=== PATIENT | female | born 1940 | race Caucasian/White ===

== ENCOUNTER 2021-06-14 21:50 | Observation (INO) | payer MEDICARE, BC ==
[2021-06-14] MEDS ORDERED: HYDROmorphone 1 MG/ML Syringe IM ONE (22:06)
--- NOTE | 2021-06-14 22:08 | EDM.PDOC ---
ED HPI GENERAL MEDICAL PROBLEM - General Chief Complaint: Lower Extremity Injury/Pain Stated Complaint: LT LEG ISSUES Time Seen by Provider: 06/14/21 22:00 Source of Information: Reports: Patient, Family History Limitations: Reports: No Limitations - History of Present Illness INITIAL COMMENTS - FREE TEXT/NARRATIVE: 80-year-old female who just underwent knee surgery in April on the left side, was walking around the back of the vehicle this evening when her leg gave out. She has severe pain in her left femur and around her left knee, she is unable to move the leg or bear any weight. No other injury. Onset: Sudden Location: Reports: Lower Extremity, Left Associated Symptoms: Reports: No Other Symptoms Left Leg Pain Score (Numeric/FACES): 6 - Related Data Allergies Allergy/AdvReac Type Severity Reaction Status Date / Time No Known Allergies Allergy Verified 04/11/14 09:43 Home Meds: Home Meds Acetaminophen [Pain Relief Extra Strength] 1,000 mg PO QID 06/14/21 [History] Aspirin 325 mg PO DAILY 06/14/21 [History] Glimepiride 2 mg PO DAILY 06/14/21 [History] Metoprolol Tartrate [Lopressor] 25 mg PO Q12HR 06/14/21 [History] Review of Systems - Review of Systems Review Of Systems: See Below Constitutional: Denies: Fever Respiratory: Denies: Shortness of Breath Cardiovascular: Denies: Chest Pain Musculoskeletal: Reports: Other (Severe left leg pain) Skin: Denies: Bruising ED EXAM, GENERAL - Physical Exam Exam: See Below Exam Limited By: No Limitations General Appearance: Alert, Anxious, Moderate Distress (Very uncomfortable) Eye Exam: Bilateral Eye: Normal Inspection Respiratory/Chest: No Respiratory Distress Cardiovascular: Regular Rate, Rhythm, Tachycardia GI/Abdominal: Soft, Non-Tender Extremities: Other (Diffuse swelling over the distal femur, lack of solid structure and crepitus indicates a distal fracture likely. Distal CMS is intact. Palpation around the left hip is nontender) Neurological: Alert, Oriented Psychiatric: Anxious Skin Exam: Warm, Dry Course - Vital Signs Last Recorded V/S: Last Vital Signs Temp 98.8 F 06/15/21 01:06 Pulse 99 06/15/21 01:06 Resp 18 06/15/21 01:06 BP 160/93 H 06/15/21 01:06 Pulse Ox 93 L 06/15/21 01:06 - Orders/Labs/Meds Orders: Medication Orders Hydromorphone HCl (Hydromorphone 0.5 Mg/0.5 Ml Syringe) 0.5 mg IVPUSH Q2H PRN PRN Reason: Pain Last Admin: 06/15/21 01:58 Dose: 0.5 mg Documented by: TRACE Sodium Chloride (Normal Saline) 1,000 mls @ 75 mls/hr IV ASDIRECTED MIKAYLA Last Admin: 06/15/21 01:59 Dose: 75 mls/hr Documented by: TRACE Metoprolol Tartrate (Metoprolol Tartrate 25 Mg Tab) 25 mg PO Q12H [facility] Labs: Laboratory Tests 06/15/21 06/15/21 06/15/21 Range/Units 00:25 00:25 00:37 WBC 9.9 (4.5-11.0) K/uL RBC 4.61 (3.30-5.50) M/uL Hgb 14.2 (12.0-15.0) g/dL Hct 44.3 (36.0-48.0) % MCV 96 (80-98) fL MCH 31 (27-31) pg MCHC 32 (32-36) % Plt Count 197 (150-400) K/uL Neut % (Auto) 82.3 H (36-66) % Lymph % (Auto) 11.9 L (24-44) % Wetzel % (Auto) 4.9 (2-6) % Eos % (Auto) 0.6 L (2-4) % Baso % (Auto) 0.3 (0-1) % Sodium 140 (140-148) mmol/L Potassium 4.6 (3.6-5.2) mmol/L Chloride 105 (100-108) mmol/L Carbon Dioxide 26 (21-32) mmol/L Anion Gap 9.4 (5.0-14.0) mmol/L BUN 15 (7-18) mg/dL Creatinine 0.8 (0.6-1.0) mg/dL Est Cr Clr Drug Dosing 49.24 mL/min Estimated GFR (MDRD) > 60 (>60) Glucose 192 H (74-106) mg/dL Calcium 9.4 (8.5-10.1) mg/dL SARS CoV-2 RNA Rapid LUCIO Negative Meds: Medications Generic Name Dose Route Start Last Admin Trade Name Freq PRN Reason Stop Dose Admin Hydromorphone HCl 0.5 mg 06/15/21 01:47 06/15/21 01:58 Hydromorphone 0.5 Mg/0.5 Ml Syringe IVPUSH 0.5 mg Q2H PRN Administration Pain Sodium Chloride 1,000 mls @ 75 mls/hr 06/15/21 02:00 06/15/21 01:59 Normal Saline IV 75 mls/hr ASDIRECTED MIKAYLA Administration Metoprolol Tartrate 25 mg 06/15/21 09:00 Metoprolol Tartrate 25 Mg Tab PO Q12H MIKAYLA Discontinued Medications Generic Name Dose Route Start Last Admin Trade Name Freq PRN Reason Stop Dose Admin Hydromorphone HCl 1 mg 06/14/21 22:06 06/14/21 22:16 Hydromorphone 1 Mg/Ml Syringe IM 06/14/21 22:07 1 mg ONETIME ONE Administration Metoprolol Tartrate 25 mg 06/15/21 02:00 Metoprolol Tartrate 25 Mg Tab PO Q12H MIKAYLA Propofol Confirm 06/15/21 00:00 Propofol 200 Mg/20 Ml Sdv Administered 06/15/21 00:01 Dose 200 mg .ROUTE .STK-MED ONE - Re-Assessments/Exams Free Text/Narrative Re-Assessment/Exam: 06/14/21 23:06 X-ray unfortunately confirms a spiral distal femur fracture above the total knee. There is displacement. Orthopedics at [facility] was consulted and they are reviewing the films, anesthesia was consulted and the patient will be placed under propofol sedation and we will try to reduce this fracture and get a knee immobilizer on her for transfer. 06/15/21 00:28 [facility], [facility], [facility] in [place] all declined transfer of the patient. We are unable to provide orthopedic surgery here as we do not have the correct materials according to Dr. Banda. [facility] was consulted. Our only option is to place her here for pain control and wait for a bed to open at [facility] tomorrow. Under propofol sedation the leg was straightened, reduction was attempted and a knee immobilizer was placed. She felt much better but still had significant displacement on the post reduction. Dr. Ortiz he agreed to admit the patient for pain control, a Covid screen was done as well as a BMP and CBC which are pending. She is doing much better. 06/15/21 00:42 [facility] expects discharge is to start occurring at 8 AM, they asked us to call at 8 AM at the change of shift with the physicians to arrange transfer. 06/15/21 02:44 Patient was under sedation 22 minutes Departure - Departure Time of Disposition: 00:53 Disposition: Admitted As Inpatient 66 Clinical Impression: Closed fracture of left distal femur Qualifiers: Encounter type: initial encounter Fracture morphology: unspecified fracture morphology Qualified Code(s): S72.402A - Unspecified fracture of lower end of left femur, initial encounter for closed fracture - Discharge Information Sepsis Event Note (ED) - Focused Exam Vital Signs: Vital Signs Temp Pulse Resp BP Pulse Ox 06/14/21 23:25 99 18 129/84 92 L 06/14/21 22:13 96.8 F L 110 H 16 141/93 H 96 06/14/21 22:05 96.8 F L 110 H 16 141/93 H 96
[2021-06-15] MEDS ORDERED: Propofol 200 MG/20 ML SDV ONE
--- NOTE | 2021-06-15 00:14 | CRLCR ---
For Patients: As a result of the Cures Act, medical imaging exams and procedure reports are released immediately into your electronic medical record. You may view this report before your referring provider. If you have questions, please contact your health care provider. INDICATION: Fall, leg pain TECHNIQUE: Femur radiograph 2 views on 3 films left COMPARISON: None FINDINGS: Bone: A displaced oblique periprosthetic fracture is present in the distal femur. The lateral view does not include the proximal femur. Joint: There is a bipolar left hip prosthesis and left total knee arthroplasty seen. No significant joint effusion is seen. Soft tissue: Unremarkable. No radiopaque foreign bodies are seen. IMPRESSION: 1. A displaced oblique periprosthetic fracture is present in the distal femur. Dictated by Ayush Corcoran MD @ 06/15/2021 12:11:36 AM Dictated by: Ayush Corcoran MD @ 06/15/2021 00:11:41 (Electronically Signed)
--- NOTE | 2021-06-15 00:15 | CRLCR ---
For Patients: As a result of the Cures Act, medical imaging exams and procedure reports are released immediately into your electronic medical record. You may view this report before your referring provider. If you have questions, please contact your health care provider. INDICATION: Femur fracture status post reduction TECHNIQUE: Knee radiograph 2 views left COMPARISON: 06/14/2021 FINDINGS: Bone: The oblique, displaced fracture in the distal femur is noted without significant interval change on the frontal view but there is increased displacement on the lateral view. Joint: A total knee arthroplasty is present. No significant knee effusion is seen. Soft tissue: Unremarkable. No radiopaque foreign bodies are seen. IMPRESSION: 1. The oblique, displaced fracture in the distal femur is noted without significant interval change on the frontal view but there is increased displacement on the lateral view. Dictated by Ayush Corcoran MD @ 06/15/2021 12:15:11 AM Dictated by: Ayush Corcoran MD @ 06/15/2021 00:15:16 (Electronically Signed)
--- NOTE | 2021-06-15 00:18 | CRLCR ---
For Patients: As a result of the Cures Act, medical imaging exams and procedure reports are released immediately into your electronic medical record. You may view this report before your referring provider. If you have questions, please contact your health care provider. INDICATION: Fall, knee pain TECHNIQUE: Knee radiograph 2 views left COMPARISON: None FINDINGS: Bone: There is a comminuted oblique periprosthetic fracture present in the distal femur. Joint: A total knee arthroplasty with patellar resurfacing is noted. No significant knee effusion is seen. Soft tissue: Soft tissue swelling and edema is noted. No radiopaque foreign bodies are seen. IMPRESSION: 1. There is a comminuted oblique periprosthetic fracture present in the distal femur. Dictated by Ayush Corcoran MD @ 06/15/2021 12:16:06 AM Dictated by: Ayush Corcoran MD @ 06/15/2021 00:16:22 (Electronically Signed)
[2021-06-15] MEDS: HYDROmorphone 0.5 MG/0.5 ML Syringe IVPUSH PRN ×4 (01:58→11:31)
[2021-06-15] MEDS ORDERED: Sodium Chloride 0.9% 1,000 ML IV SCH (02:00)
[2021-06-15] MEDS ORDERED: Metoprolol Tartrate 25 MG Tab PO SCH ×2 (02:00→09:00)
[2021-06-15 10:04] VITALS: BP 134/83; PULSE 84
[2021-06-15] MEDS ORDERED: Ondansetron 4 MG/2 ML SDV IVPUSH ONE (10:57)
--- NOTE | 2021-06-15 16:31 | HP ---
IDENTIFYING DATA: Rita Lozada is a 80-year-old female from [place]. CHIEF COMPLAINT: Left leg pain. HISTORY OF PRESENT ILLNESS: This elderly female with history of known degenerative arthritis of left knee, underwent a left total knee arthroplasty at [facility] in April of 2021. Postoperative recovery was uneventful. She was participating in rehab therapies and ambulating independently. She reported this evening as she had exited her vehicle and was walking around the rear of the car, she suddenly dropped to the ground with severe pain at the distal thigh and inability to rise. Given her significant discomfort, she was transported to the emergency room for evaluation, and on radiographic imaging, was found to have a spiral displaced fracture of the distal left femur. She is now admitted for supportive care and required orthopedic services. PAST MEDICAL HISTORY: As noted, she had a left total knee arthroplasty completed in June of 2021. Additional surgeries include bilateral knee arthroscopies, abdominal hysterectomy, bilateral cataract extraction, and bilateral hip replacements. Additional chronic health problems include hypertension and hyperglycemia. ALLERGIES: DOES NOTE GI UPSET WITH OXYCODONE. NO OTHER NOTED MEDICATION ALLERGIES OR SENSITIVITIES. IMMUNIZATIONS: She has not received her annual influenza vaccine. She was scheduled for administration of Pb COVID vaccine next week. HABITS: Nonsmoker. Alcohol intake averages 3 to 4 glasses of wine weekly. Caffeine intake of 2 to 3 cups of coffee daily. CURRENT MEDICATIONS: 1. Acetaminophen 1000 mg q.i.d. p.r.n. pain. 2. Aspirin 325 mg daily. 3. Glimepiride 2 mg daily. 4. Metoprolol tartrate 25 mg b.i.d. SOCIAL HISTORY: She is , residing in her independent dwelling with . Performs ADLs without assistance. Denies recent known COVID exposure. FAMILY HISTORY: Denies familial history of anesthetic reactions or coagulopathy. No known recent family history of COVID disease. REVIEW OF SYSTEMS: NEUROLOGIC: Status post cataract extraction. She has a history of retinal disease, followed by her eye care provider. She does wear corrective lenses. Also reports slight decline in auditory acuity without use of hearing aids. No history of stroke, seizures, focal weakness, or paresthesias. CARDIAC: Hypertension and hyperglycemia by patient report. No history of congenital heart disease, rheumatic fever, OR, chest pain, palpitations, syncope, or congestive heart failure. RESPIRATORY: Denies asthma, emphysema, tuberculosis, COVID disease. Or current URI symptoms. GI: No history of hepatitis, jaundice, chronic dyspepsia, nausea, emesis, melena, or hematochezia. Has had previous abdominal laparotomy for surgical repair of bowel perforation secondary to a colonoscopic study. : Status post hysterectomy. Denies urinary incontinence, rises once nightly to void. MUSCULOSKELETAL: Left thigh pain now noted. Recent left total knee arthroplasty. History of bilateral total hip arthroplasties in the remote past. PHYSICAL EXAMINATION: GENERAL: Appearance is that of an adult female, resting comfortably in bed. Does subjectively note aching in the left thigh. VITAL SIGNS: Temperature 98.8 degrees Fahrenheit, pulse 99, respiratory rate 18, blood pressure 160/93, O2 saturations 93% on room air. HEENT: Status post cataract extraction. Extraocular eye movements are intact. Hearing is grossly intact. No facial asymmetries. No oropharyngeal lesions. NECK: Brisk carotid pulses. No bruits, JVD, or thyromegaly. LUNGS: Symmetrical, clear, resonant, nontachypneic. HEART: Regular without murmurs or gallops noted. ABDOMEN: Moderately obese, soft, nontender. No organomegaly. Active sounds. Good femoral pulses. No abdominal bruits. No pain at the iliac crest or symphysis. AND RECTAL: Omitted. EXTREMITIES: Good radial and posterior tibial pulses. Brisk capillary refill. SKIN: Warm and pink. No pitting edema. No open or ischemic skin changes. Surgical incision from recent left total knee arthroplasty is healing well. She has palpable tenderness at the distal left thigh. LABORATORY DATA: X-ray of the left femur and knee shows hip prosthesis in unremarkable presentation. She has a spiral displaced fracture of the distal left femur. Postreduction films obtained in the emergency room showed a partial correction of her displacement. Labs on admission, WBC 9.9, hemoglobin 14.2, platelet count 197,000. Sodium 140, potassium 4.6, creatinine 0.8, GFR greater than 60, glucose 192. COVID screen negative. IMPRESSION: 1. Spontaneous displaced spiral fracture of the distal left femur. 2. Recent left total knee arthroplasty. 3. History of bilateral total hip arthroplasties in the remote past. 4. Hypertension. 5. Hyperglycemia. PLAN: Orthopedic Services for surgical repair were not available on the evening of presentation to the emergency room. Similarly, calls to numerous facilities indicated these hospitals were at full capacity and unable to accept for definitive orthopedic care. She, therefore, is admitted for pain control overnight. We will provide Dilaudid on a p.r.n. basis. Knee immobilizer, bed rest status, Ramirez catheter, and IV fluids have been requested. We will maintain n.p.o. status in hopes of arranging for orthopedic services and surgical repair within 24 hours. Full code status is implemented. We will continue with metoprolol and hold glimepiride therapy with the patient currently n.p.o. Note that COVID testing is negative. Continue to monitor for signs of active disease. Norberto Ortiz MD /[id number]
== END 2021-06-15 11:46 ==
LOC: JP.ED 21:50 → JP.MS 06-15 00:46
PROVIDERS: ADMIT Family Medicine; ATTEND Family Medicine
DX: S72.402A Unspecified fracture of lower end of left femur, initial encounter for closed fracture (principal); I10 Essential (primary) hypertension; R73.9 Hyperglycemia, unspecified; Z88.5 Allergy status to narcotic agent; Z79.899 Other long term (current) drug therapy; Z79.82 Long term (current) use of aspirin; Z96.652 Presence of left artificial knee joint; Z01.812 Encounter for preprocedural laboratory examination; Z20.822 Contact with and (suspected) exposure to COVID-19
CPT/HCPCS: 27510; 36415; 51702; 73552; 73560; 80048; 85025; 96372; 96374; 96375; 96376; 99284; A9270; G0378; J1170; J2405; J2704; J7030; U0002

== ENCOUNTER 2023-02-07 09:38 | Emergency (ER) | payer MEDICARE, BC ==
[2023-02-07] MEDS ORDERED: Sodium Chloride 0.9% 10 ML Syringe FLUSH PRN (09:44)
[2023-02-07 10:28] LABS: BASOPHILS ABSOLUTE AUTO 0.03 K/uL (0.00-0.10); BASOPHILS PERCENT AUTO 0.5 % (0.1-1.3); EOSINOPHILS ABSOLUTE AUTO 0.18 K/uL (0.00-0.40); EOSINOPHILS PERCENT AUTO 2.9 % (0.0-5.4); HEMATOCRIT 43.8 % (34.3-46.0); HEMOGLOBIN 14.1 g/dL (11.2-15.5); IMMATURE GRAN ABSOLUTE AUTO 0.03 K/uL (0.00-0.23); IMMATURE GRAN PERCENT AUTO 0.5 % (0.0-0.7); LYMPHOCYTES ABSOLUTE AUTO 1.77 K/uL (0.8-3.3); LYMPHOCYTES PERCENT AUTO 28.8 % (11.4-47.7); MEAN CORPUSCULAR HEMOGLOBIN 31.7 pg (31.6-35.5); MEAN CORPUSCULAR HGB CONC 32.2 g/dL (31.6-35.5); MEAN CORPUSCULAR VOLUME 98.4 fL (81.4-99.0); MONOCYTES ABSOLUTE AUTO 0.65 K/uL (0.20-0.90); MONOCYTES PERCENT AUTO 10.6 % (3.3-12.6); NEUTROPHILS ABSOLUTE AUTO 3.49 K/uL (1.0-7.6); NEUTROPHILS PERCENT AUTO 56.7 % (40.0-78.1); PLATELET COUNT,PLT 197 K/uL (130-375); RED BLOOD CELL COUNT 4.45 M/uL (3.77-5.24); WHITE BLOOD CELL COUNT,WBC 6.2 K/uL (3.2-11.0)
[2023-02-07 10:59] LABS: A/G RATIO 0.8 (1.2-2.2); ALANINE AMINOTRANSFERASE,ALT 26 U/L (12-78); ALBUMIN 3.3 g/dL (3.4-5.0); ALKALINE PHOSPHATASE 77 U/L (46-116); ANION GAP 7.8 mmol/L (5.0-14.0); ASPARTATE AMNIOTRANSFERASE,AST 24 U/L (15-37); BILIRUBIN TOTAL 0.9 mg/dL (0.2-1.0); BLOOD UREA NITROGEN,BUN 21 mg/dL (7-18); C-REACTIVE PROTEIN 0.31 mg/dL (0.0-0.3); CALCIUM 9.8 mg/dL (8.5-10.1); CARBON DIOXIDE,CO2 28 mmol/L (21-32); CHLORIDE,CL 105 mmol/L (100-108); CREATININE 1.2 mg/dL (0.6-1.0); EST CRCL DRUG DOSING (CG) 31.75 mL/min; ESTIMATED GFR 45 mL/min (>60); GLUCOSE RANDOM 122 mg/dL (74-106); POTASSIUM,K 4.1 mmol/L (3.6-5.2); PROTEIN TOTAL,TP 7.7 g/dL (6.4-8.2); SODIUM,NA 141 mmol/L (140-148); TROPONIN I HIGH SENSITIVITY 5.4 pg/mL (<=60.3); TSH ULTRASENSITIVE 1.031 uIU/mL (0.358-3.740)
[2023-02-07 12:14] VITALS: BP 124/79; PULSE 62
== END 2023-02-07 12:10 | disposition home or self-care (01) ==
LOC: JP.ED 09:38
DX: R07.89 Other chest pain (principal); E11.9 Type 2 diabetes mellitus without complications; M19.90 Unspecified osteoarthritis, unspecified site; E66.9 Obesity, unspecified; Z68.39 Body mass index [BMI] 39.0-39.9, adult; Z79.01 Long term (current) use of anticoagulants; Z86.711 Personal history of pulmonary embolism; Z79.899 Other long term (current) drug therapy; Z79.82 Long term (current) use of aspirin; Z79.84 Long term (current) use of oral hypoglycemic drugs
CPT/HCPCS: 36415; 80053; 84443; 84484; 85025; 85379; 86140; 93005; 99285; J3490

== ENCOUNTER 2023-07-08 08:15 | Emergency (ER) | payer MEDICARE, BC ==
[2023-07-08] MEDS ORDERED: Bupivacaine 0.5% 10 ML SDV INJECT ONE (08:59)
[2023-07-08] MEDS ORDERED: Triamcinolone Acetonide 40 MG/ML 1 ML SDV INJECT PRN (08:59)
[2023-07-08 09:33] VITALS: BP 110/72; PULSE 77
== END 2023-07-08 09:40 | disposition home or self-care (01) ==
LOC: JP.ED 08:15
DX: M70.62 Trochanteric bursitis, left hip (principal); I10 Essential (primary) hypertension; E11.9 Type 2 diabetes mellitus without complications; E66.9 Obesity, unspecified; Z68.39 Body mass index [BMI] 39.0-39.9, adult; Z79.82 Long term (current) use of aspirin; Z79.899 Other long term (current) drug therapy; Z79.84 Long term (current) use of oral hypoglycemic drugs
CPT/HCPCS: 20610; 99283; J3301; J3490

== ENCOUNTER 2024-04-13 08:48 | Emergency (ER) | payer MEDICARE, BC ==
[2024-04-13 09:22] VITALS: PULSE 60
[2024-04-13 10:20] LABS: ANION GAP 8.5 mmol/L (5.0-14.0); CALCIUM 8.6 mg/dL (8.5-10.1); CREATININE 1.3 mg/dL (0.6-1.0); EST CRCL DRUG DOSING (CG) 28.81 mL/min; POTASSIUM,K 4.5 mmol/L (3.6-5.2)
[2024-04-13] MEDS: oxyCODONE 5 MG Tab PO ONE (10:26)
[2024-04-13 10:28] VITALS: BP 97/45
== END 2024-04-13 11:39 | disposition home or self-care (01) ==
LOC: JP.ED 08:48
DX: M17.11 Unilateral primary osteoarthritis, right knee (principal); I10 Essential (primary) hypertension; E11.9 Type 2 diabetes mellitus without complications; E66.9 Obesity, unspecified; Z86.16 Personal history of COVID-19; Z90.710 Acquired absence of both cervix and uterus; Z79.84 Long term (current) use of oral hypoglycemic drugs; Z79.899 Other long term (current) drug therapy; Z79.82 Long term (current) use of aspirin; Z79.1 Long term (current) use of non-steroidal anti-inflammatories (NSAID); Z68.39 Body mass index [BMI] 39.0-39.9, adult
CPT/HCPCS: 36415; 73562; 80048; 85048; 85379; 99283; A9270